=== PATIENT | male | born 1980 | race Caucasian/White ===

== ENCOUNTER 2017-02-21 20:50 | Emergency (ER) | payer BC ==
[2017-02-21 21:15] VITALS: BP 157/87
[2017-02-21] MEDS ORDERED: Ondansetron ODT TAB* 4 MG PO ONE (21:21)
--- NOTE | 2017-02-21 21:54 | UC ---
Abdominal Pain Male HPI - HPI Summary HPI Summary: 36 yo M otherwise healthy states he has severe left mid abd cramping pain that began suddenly at 5:30pm. Pt states he tried to move his bowels but nothing came out. No hx kidney stones. Pt states he still feels like "he has to take a huge dump". States he tried Pepto Bismol without any relief. Pt asked to provide a urine sample upon presentation, and pt states he is unable to void now. Pt states he moved his bowels this am and they were normal, no blood, normal brown, formed stool. Pt states after he tried moving his bowels without success, he then tried to eat dinner, and within moments vomited undigested food. States since then he has tried water and he continues to vomit whenever he tries to take something po. No hx abdominal surgery. No fever. - History of Current Complaint Chief Complaint: UCAbdominalPain Stated Complaint: SEVERE ABDOMINAL PAIN,VOMITING Time Seen by Provider: 02/21/17 21:10 Hx Obtained From: Patient, Family/[employer] - Elizabeth Onset/Duration: Sudden Onset, Lasting Hours - since 5:30pm, Still Present Timing: Constant Severity Initially: Moderate Severity Currently: Severe Pain Intensity: 10 Pain Scale Used: 0-10 Numeric Location: Discrete At: LLQ Radiates: No Character: Cramping Aggravating Factor(s):: Nothing Alleviating Factor(s): Nothing Associated Signs And Symptoms: Positive: Vomiting - Allergies/Home Medications Allergies/Adverse Reactions: Allergies Allergy/AdvReac Type Severity Reaction Status Date / Time Cephalosporins Allergy Hives Verified 02/21/17 20:59 Home Medications: Home Medications Bismuth Subsalicylate [Pepto-Bismol Max Strength] 30 ml PO SEE INSTRUCTIONS PRN 02/21/17 [History Confirmed 02/21/17] PMH/Surg Hx/FS Hx/Imm Hx Previously Healthy: Yes - Surgical History Surgical History: None - Family History Known Family History: Positive: Hypertension - Social History Occupation: Employed Full-time Lives: With Family Alcohol Use: Occasionally Substance Use Type: None Smoking Status (MU): Never Smoked Tobacco Review of Systems Constitutional: Negative Skin: Negative Eyes: Negative ENT: Negative Respiratory: Negative Cardiovascular: Negative Gastrointestinal: Abdominal Pain, Vomiting Genitourinary: Negative Motor: Negative Neurovascular: Negative Musculoskeletal: Negative Neurological: Negative Psychological: Negative All Other Systems Reviewed And Are Negative: Yes Physical Exam Triage Information Reviewed: Yes Appearance: Well-Nourished, Ill-Appearing, Pain Distress Vital Signs: Initial Vital Signs Temp 98 F 02/21/17 20:54 Pulse 83 02/21/17 20:54 Resp 16 02/21/17 20:54 BP 157/87 02/21/17 20:54 Pulse Ox 100 02/21/17 20:54 Vital Signs Reviewed: Yes Eyes: Positive: Conjunctiva Clear ENT: Positive: Normal ENT inspection Neck: Positive: Supple Respiratory: Positive: Lungs clear, Normal breath sounds, No respiratory distress Cardiovascular: Positive: RRR, No Murmur, Pulses Normal, Brisk Capillary Refill Abdomen Description: Positive: No Organomegaly, Soft, Other: - tender L mid abd , LLQ. Negative: CVA Tenderness (R), CVA Tenderness (L), Distended, Guarding, McBurney's Point Tenderness, Peritoneal Signs, Pulsatile Mass Bowel Sounds: Positive: Hypoactive Musculoskeletal: Positive: Strength Intact, ROM Intact Neurological: Positive: Alert, Muscle Tone Normal Psychological Exam: Normal Skin Exam: Normal Abd Pain Male Course/Dx - Course Course Of Treatment: Pt is unable to void, so no further evaluation possible in UC. In addition pt's pain is severe, needs higher level of care. Discussed with pt and his and they agree to go to [facility] by private car now. Pt given zofran 4mg ODT and advised to remain NPO and to save his urine to be able to give a sample. Discussed with Dr. Newton ED attending by phone and advised him of pt being advised to come for further evaluation. - Differential Dx/Clinical Impression Differential Diagnosis/HQI/PQRI: Appendicitis, Bowel Obstruction, Constipation, Diverticulitis, Pancreatitis, Renal Colic, Ureteral Stone, Urinary Tract Infection Provider Diagnoses: acute abdominal pain with vomiting Discharge - Discharge Plan Condition: Stable Disposition: OTHER Discharge Disposition Comment: to [facility] by private car now. Patient Education Materials: Acute Abdominal Pain (ED) Referrals: No Primary Care Phys,NOPCP [Primary Care Provider] - Additional Instructions: Dr. Real recommends that you directly to the [facility] now. She has spoken to Dr. Newton about your care.
== END 2017-02-21 21:34 ==
LOC: UCCORT 20:50
DX: R10.32 Left lower quadrant pain (principal); R11.10 Vomiting, unspecified; Z88.1 Allergy status to other antibiotic agents
CPT/HCPCS: 99202; A9270-GY; G0463